=== PATIENT | male | born 1985 | race Caucasian/White ===

== ENCOUNTER 2021-09-06 12:33 | Observation (INO) | payer BC ==
[2021-09-06 13:42] LABS: Absolute Lymphocytes (CBC) 1.4 K/uL (0.7-4.9); Hematocrit 47.3 % (39.6-49.0); Lymphocytes % 8.8 % (15.3-44.8); MPV 6.5 fL (7.6-11.3); RBC Red Blood Cell Count 5.56 M/uL (4.33-5.43)
[2021-09-06] MEDS ORDERED: MORPHINE 4 MG/ML SYR ONE (13:56)
[2021-09-06] MEDS ORDERED: NA CHLORIDE 0.9% 1,000 ML ONE ×2 (13:56→21:25)
[2021-09-06] MEDS ORDERED: ONDANSETRON 4 MG/2 ML VIAL ONE (13:56)
[2021-09-06 13:57] LABS: Albumin 4.3 g/dL (3.4-5.0); Bilirubin Direct 0.1 mg/dL (0-0.2); Bilirubin Total 0.4 mg/dL (0.2-1.0); Potassium 3.5 mmol/L (3.5-5.1); Protein, Total 8.4 g/dL (6.4-8.2)
--- NOTE | 2021-09-06 14:36 | RAD REPORT ---
EXAM DESCRIPTION: CTAbdomen Pelvis W Contrast - 09/06/2021 2:17 pm CLINICAL HISTORY: Abdominal pain. ABD PAIN COMPARISON: No comparisons TECHNIQUE: Biphasic CT imaging of the abdomen and pelvis was performed with 100 ml non-ionic IV cont rast. All CT scans are performed using dose optimization technique as appropriate and may include automated exposure control or mA/KV adjustment according to patient size. FINDINGS: The lung bases are clear. The liver, spleen, pancreas, adrenal glands and kidneys are within normal limits. No bowel obstruction, free air, free fluid or abscess. The appendix is not identified as a discrete structure, however, no secondary findings of appendicitis are identified. No evidence of significan t lymphadenopathy. No suspicious bony findings. IMPRESSION: No acute intra-abdominal or pelvic finding.
[2021-09-06 15:24] LABS: Urine Blood Negative (Negative); Urine Glucose Negative (Negative); Urine Protein Negative (Negative); Urine pH 8.5 (5.0-7.0)
[2021-09-06] MEDS ORDERED: DICYCLOMINE HCL 10 MG CAP ONE (16:16)
[2021-09-06] MEDS ORDERED: PANTOPRAZOLE 40 MG INJ ONE ×2 (16:16→21:25)
[2021-09-06] MEDS ORDERED: NS 0.9% VIAL 10 ML ONE (16:17)
[2021-09-06 16:21] LABS: Protime INR 1.05
[2021-09-06 16:34] LABS: Magnesium 1.8 mg/dL (1.8-2.4); NT PRO-BNP 33 pg/mL (<125); Troponin (Emerg Dept Use Only) < 0.02 ng/mL (0.0-0.045)
[2021-09-06] MEDS ORDERED: LIDOCAINE VISCOUS 2% SOLN 15 ML UDC ONE (16:40)
[2021-09-06] MEDS ORDERED: MAGNES/ALUMIN/SIMET 30ML UCUP ONE (16:40)
--- NOTE | 2021-09-06 16:40 | RAD REPORT ---
EXAM DESCRIPTION: RAD - Chest Single View - 09/06/2021 4:22 pm CLINICAL HISTORY: CHEST PAIN Chest pain. COMPARISON: No comparisons FINDINGS: Portable technique limits examination quality. The lungs are grossly clear. The heart is normal in size. No displaced fractures. IMPRESSION: No acute intrathoracic process suspected.
--- NOTE | 2021-09-06 16:50 | RAD REPORT ---
EXAM DESCRIPTION: US - Abdomen Exam Limited - 09/06/2021 4:26 pm CLINICAL HISTORY: ABD PAIN COMPARISON: No comparisons FINDINGS: The gallbladder demonstrates no gallstones. No pericholecystic fluid or gallbladder wall t hickening. The common bile duct is normal measuring 2 mm. The liver demonstrates no findings of intrahepatic biliary dilatation. IMPRESSION: Unremarkable examination.
[2021-09-06 16:56] LABS: Urine Blood Negative (Negative); Urine Glucose Negative (Negative); Urine Protein Negative (Negative); Urine Specific Gravity 1.015 (1.005-1.030); Urine pH 8.5 (5.0-7.0)
[2021-09-06] MEDS ORDERED: MAGNES/ALUMIN/SIMET 30ML UCUP PO PRN (17:00)
[2021-09-06] MEDS ORDERED: LIDOCAINE VISCOUS 2% SOLN 15 ML UDC PO PRN (17:00)
--- NOTE | 2021-09-06 17:00 | ER ---
Nurse's Notes [facility] Name: Tom Gurrola Age: 36 yrs Sex: Male : 1985 Arrival Date: 09/06/2021 Time: 12:38 Bed 26 Private MD: Diagnosis: Upper abdominal pain, unspecified;Elevated white blood cell count Presentation: 09/06 13:08 Chief complaint: Patient states: he has had abdominal pain since this morning at around ap3 approx 0930. Patient reports nausea with no vomiting. Coronavirus screen: At this time, the client does not indicate any symptoms associated with coronavirus-19. Ebola Screen: No symptoms or risks identified at this time. Initial Sepsis Screen: Does the patient meet any 2 criteria? No. Patient's initial sepsis screen is negative. Does the patient have a suspected source of infection? No. Patient's initial sepsis screen is negative. Risk Assessment: Do you want to hurt yourself or someone else? Patient reports no desire to harm self or others. Onset of symptoms was September 06, 2021. 13:08 Method Of Arrival: Ambulatory ap3 13:08 Acuity: SHABBIR 3 ap3 Triage Assessment: 13:10 General: Appears uncomfortable, Behavior is cooperative, anxious. Pain: Complains of ap3 pain in abdomen Pain currently is 8 out of 10 on a pain scale. Pain began gradually, 4 hours ago. Also complains of nausea. Neuro: Level of Consciousness is awake, alert, obeys commands, Oriented to person, place, time, situation, Speech is normal. Cardiovascular: Patient's skin is warm and dry. Respiratory: Airway is patent Respiratory effort is even, unlabored, Respiratory pattern is regular, symmetrical. GI: Reports lower abdominal pain, upper abdominal pain, nausea. Historical: - Allergies: 13:10 No Known Allergies; ap3 - Home Meds: 13:10 None [Active]; ap3 - PMHx: 13:10 None; ap3 - PSHx: 13:10 None; ap3 - Immunization history:: Client reports having NOT received the Covid vaccine. - Social history:: Smoking status: Patient denies any tobacco usage or history of. Screenin:12 Abuse screen: Denies threats or abuse. Nutritional screening: No deficits noted. ap3 Tuberculosis screening: No symptoms or risk factors identified. 15:00 Fall Risk None identified. eo2 Assessment: 14:00 General: Appears uncomfortable, Behavior is cooperative. Neuro: Level of Consciousness eo2 is awake, alert, obeys commands, Oriented to person, place, time, situation, Reports dizziness, and "lightheadness" onset this morning. Cardiovascular: Denies chest pain, Capillary refill < 3 seconds Patient's skin is warm and dry. Respiratory: Breath sounds are clear bilaterally. Denies shortness of breath. GI: Bowel sounds present X 4 quads. Abdomen is tender to palpation "whole" abdomen per pt, reports abd pain onset this morning associated with nausea, denies V/D. : No signs and/or symptoms were reported regarding the genitourinary system. Derm: Skin is pale. 15:50 Reassessment: Pt noted with HR 155s on pulse ox, good waveform, Hellen DRUMMOND made aware, eo2 EKG obtained, read NSR, pt denied CP, HR noted to return to 80s by the time of EKG. 19:33 Reassessment: Pt reports improved symptoms, pain 2/10 worsened with movement, otherwise eo2 in NAD. Vital Signs: 13:08 BP 117 / 88 RA Sitting; Pulse 75; Resp 19; Temp 97.5; Pulse Ox 98% on R/A; Weight ap3 108.86 kg; Height 6 ft. (182.88 cm); Pain 8/10; 14:00 BP 109 / 62; Pulse 73; Resp 19; Pulse Ox 100% ; Pain 10/10; eo2 15:00 BP 119 / 80; Pulse 92; Resp 17; Temp 98.0; Pulse Ox 98% ; Pain 4/10; eo2 15:45 BP 111 / 72; Pulse 85; Resp 17; Pulse Ox 98% ; Pain 6/10; eo2 16:30 BP 109 / 70; Pulse 84; Resp 20; Pulse Ox 100% ; Pain 6/10; eo2 17:00 BP 115 / 76; Pulse 89; Resp 17; Pulse Ox 98% ; Pain 6/10; eo2 18:00 BP 105 / 70; Pulse 96; Resp 20; Pulse Ox 98% ; Pain 4/10; eo2 19:00 BP 129 / 72; Pulse 97; Resp 18; Pulse Ox 95% ; Pain 2/10; eo2 13:08 Body Mass Index 32.55 (108.86 kg, 182.88 cm) ap3 ED Course: 12:38 Patient arrived in ED. ds1 13:10 Triage completed. ap3 13:12 Arm band placed on left wrist. ap3 13:13 [facility] kb 13:13 Edwin Devries MD is Attending Physician. kb 13:30 Britta Manzano, RN is Primary Nurse. eo2 13:30 Inserted saline lock: 20 gauge in left wrist, using aseptic technique. ,using aseptic eo2 technique[address] by Neal Blood collected. 14:00 Patient has correct armband on for positive identification. Call light in reach. Side eo2 rails up X 1. Adult w/ patient. Pulse ox on. NIBP on. Door closed. Noise minimized. Warm blanket given. 14:00 No provider procedures requiring assistance completed. eo2 14:[address] eo2 14:17 CT Abd/Pelvis - IV Contrast Only In Process Unspecified. EDMS 16:09 Initial lab(s) drawn, sent to lab. tt3 16:22 XRAY Chest (1 view) In Process Unspecified. EDMS 16:26 US Abdomen Limited In Process Unspecified. EDMS 16:58 Asif Duran MD is Hospitalizing Provider. kb 19:30 COVID-19 SARS RT PCR (Document "Date of Onset" if Symptomatic) Sent. eo2 Administered Medications: 14:05 Drug: NS 0.9% 1000 ml Route: IV; Rate: 1000 ml; Site: left wrist; eo2 15:05 Follow up: Response: No adverse reaction; IV Status: Completed infusion; IV Intake: eo2 1000ml 14:05 Drug: Zofran (Ondansetron) 4 mg Route: IVP; Site: left wrist; eo2 15:05 Follow up: Response: No adverse reaction; Nausea is decreased eo2 14:05 Drug: morphine 4 mg Route: IVP; Site: left wrist; eo2 15:05 Follow up: Response: No adverse reaction; Pain is decreased eo2 16:56 Drug: Bentyl (dicyclomine) 20 mg Route: PO; eo2 17:45 Follow up: Response: No adverse reaction eo2 16:56 Drug: GI Cocktail without - (Maalox Suspension 30 ml, Lidocaine Liquid 2 % 15 eo2 ml) Route: PO; 17:45 Follow up: Response: No adverse reaction eo2 16:56 Drug: ProTONIX (pantoprazole) 40 mg Route: IVP; Site: left wrist; eo2 17:45 Follow up: Response: No adverse reaction eo2 Intake: 15:05 IV: 1000ml; Total: 1000ml. eo2 Outcome: 16:59 Decision to Hospitalize by Provider. glen 09/07 17:33 Patient left the ED. 5 Signatures: Dispatcher [employer] EDMS Hellen Ambrose, KIMMIE-C BRIM ROUNDER-Aurora Holloway ds1 Clary Lorenzo 5 Sharri Presley, RN RN donna3 Yoav Salcido tt3 Smooth Degroot Eunice, RN RN eo2 Corrections: (The following items were deleted from the chart) 09/06 14:09 13:05 morphine 4 mg IVP in left wrist eo2 eo2 16:45 16:09 First set of blood cultures drawn by oli flores tt3 19:31 17:00 BP 115 / 76; Pulse 89bpm; Resp 17bpm; Pulse Ox 98%; eo2 eo2 19:31 18:00 BP 105 / 70; Pulse 96bpm; Resp 20bpm; Pulse Ox 98%; eo2 eo2
--- NOTE | 2021-09-06 17:00 | EDPHYS ---
Physician Documentation [facility] Name: Tom Gurrola Age: 36 yrs Sex: Male : 1985 Arrival Date: 09/06/2021 Time: 12:38 Bed 26 Private MD: ED Physician Edwin Devries HPI: 09/06 15:56 This 36 yrs old Male presents to ER via Ambulatory with complaints of Abdominal Pain. kb 15:56 The patient presents with abdominal pain in the upper abdomen. Onset: The kb symptoms/episode began/occurred 4 hour(s) ago. The symptoms do not radiate. Associated signs and symptoms: none. The symptoms are described as constant. Modifying factors: The symptoms are alleviated by nothing, the symptoms are aggravated by nothing. Severity of pain: At its worst the pain was severe in the emergency department the pain is unchanged. The patient has not experienced similar symptoms in the past. The patient has not recently seen a physician. Pt reports upper abd pain that started 4 hours ago. Reports pain started as dull and then progressed to sharp. No tenderness upon exam, pt states "it just hurts." Denies cough, chest pain, n/v/d, fever. . Historical: - Allergies: 13:10 No Known Allergies; ap3 - Home Meds: 13:10 None [Active]; ap3 - PMHx: 13:10 None; ap3 - PSHx: 13:10 None; ap3 - Immunization history:: Client reports having NOT received the Covid vaccine. - Social history:: Smoking status: Patient denies any tobacco usage or history of. ROS: 15:55 Constitutional: Negative for fever, chills, and weight loss. kb 15:55 Abdomen/GI: Positive for abdominal pain, Negative for nausea, vomiting, and diarrhea. 15:55 All other systems are negative. Exam: 15:55 Head/Face: Normocephalic, atraumatic. ENT: Moist Mucous membranes Cardiovascular: kb Regular rate and rhythm with a normal S1 and S2. No gallops, murmurs, or rubs. No pulse deficits. Respiratory: Respirations even and unlabored. No increased work of breathing. Talking in full sentences Skin: Warm, dry with normal turgor. Normal color. MS/ Extremity: Pulses equal, no cyanosis. Neurovascular intact. Full, normal range of motion. Neuro: Awake and alert, GCS 15, oriented to person, place, time, and situation. Moves all extremities. Normal gait. Psych: Awake, alert, with orientation to person, place and time. Behavior, mood, and affect are within normal limits. 15:55 Constitutional: The patient appears alert, awake, in obvious distress, moderately distressed, in obvious pain. 15:55 Abdomen/GI: Inspection: abdomen appears normal, Bowel sounds: normal, in all quadrants, Palpation: abdomen is soft and non-tender, in all quadrants. Vital Signs: 13:08 BP 117 / 88 RA Sitting; Pulse 75; Resp 19; Temp 97.5; Pulse Ox 98% on R/A; Weight ap3 108.86 kg; Height 6 ft. (182.88 cm); Pain 8/10; 14:00 BP 109 / 62; Pulse 73; Resp 19; Pulse Ox 100% ; Pain 10/10; eo2 15:00 BP 119 / 80; Pulse 92; Resp 17; Temp 98.0; Pulse Ox 98% ; Pain 4/10; eo2 15:45 BP 111 / 72; Pulse 85; Resp 17; Pulse Ox 98% ; Pain 6/10; eo2 16:30 BP 109 / 70; Pulse 84; Resp 20; Pulse Ox 100% ; Pain 6/10; eo2 17:00 BP 115 / 76; Pulse 89; Resp 17; Pulse Ox 98% ; Pain 6/10; eo2 18:00 BP 105 / 70; Pulse 96; Resp 20; Pulse Ox 98% ; Pain 4/10; eo2 19:00 BP 129 / 72; Pulse 97; Resp 18; Pulse Ox 95% ; Pain 2/10; eo2 13:08 Body Mass Index 32.55 (108.86 kg, 182.88 cm) ap3 MDM: 13:13 Patient medically screened. kb 15:54 Data reviewed: vital signs, nurses notes. Data interpreted: Pulse oximetry: on room air kb is 98 %. Interpretation: normal. ED course: Nurse reports pt has had 2 episodes of tachycardia into the 150s. Unable to capture on EKG. Discussed pt condition and findings with Dr Devries. Recommends admission for abd pain. 16:50 Counseling: I had a detailed discussion with the patient and/or guardian regarding: the kb historical points, exam findings, and any diagnostic results supporting the discharge/admit diagnosis, lab results, radiology results, the need for further work-up and treatment in the hospital. Physician consultation: Asif Duran MD was contacted at 16:50, regarding admission, patient's condition. 09/06 13:13 Order name: Basic Metabolic Panel; Complete Time: 14:01 kb 09/06 13:13 Order name: CBC with Diff; Complete Time: 13:56 kb 09/06 13:13 Order name: Hepatic Function; Complete Time: 14:01 kb 09/06 13:13 Order name: Lipase; Complete Time: 14:01 kb 09/06 15:23 Order name: Urine Dipstick-Ancillary; Complete Time: 15:25 EDMS 09/06 15:53 Order name: Magnesium; Complete Time: 16:36 kb 09/06 15:53 Order name: NT PRO-BNP; Complete Time: 16:36 kb 09/06 15:53 Order name: PT-INR; Complete Time: 16:22 kb 09/06 15:53 Order name: Troponin (emerg Dept Use Only); Complete Time: 16:36 kb 09/06 16:37 Order name: UDS; Complete Time: 17:34 kb 09/06 16:39 Order name: COVID-19 SARS RT PCR (Document "Date of Onset" if Symptomatic) kb 09/06 16:56 Order name: Urine Dipstick-Ancillary; Complete Time: 16:58 EDMS 09/06 16:58 Order name: CRP; Complete Time: 18:16 kb 09/06 16:58 Order name: ESR; Complete Time: 18:27 kb 09/06 13:31 Order name: CT Abd/Pelvis - IV Contrast Only; Complete Time: 14:41 kb 09/06 15:44 Order name: US Abdomen Limited; Complete Time: 16:52 kb 09/06 15:53 Order name: XRAY Chest (1 view); Complete Time: 16:50 kb 09/06 16:58 Order name: Procal; Complete Time: 18:51 kb 09/06 22:11 Order name: SARS-COV-2 RT PCR; Complete Time: 13:32 EDMS 09/07 00:42 Order name: Urinalysis; Complete Time: 13:32 EDMS 09/07 04:24 Order name: CBC with Automated Diff; Complete Time: 13:32 EDMS 09/07 04:41 Order name: Comprehensive Metabolic Panel; Complete Time: 13:32 EDMS 09/07 04:41 Order name: Magnesium; Complete Time: 13:32 EDMS 09/07 07:40 Order name: Glucose, Ancillary Testing; Complete Time: 13:32 EDMS 09/06 13:13 Order name: IV Saline Lock; Complete Time: 13:43 kb 09/06 13:13 Order name: Labs collected and sent; Complete Time: 13:43 kb 09/06 15:00 Order name: Urine Dipstick-Ancillary (obtain specimen); Complete Time: 16:56 kb 09/06 15:31 Order name: EKG; Complete Time: 15:31 kb 09/06 15:31 Order name: EKG - Nurse/Tech; Complete Time: 15:58 kb 09/06 15:53 Order name: Cardiac monitoring; Complete Time: 15:58 kb 09/06 15:53 Order name: O2 Per Protocol; Complete Time: 15:58 kb 09/06 15:53 Order name: O2 Sat Monitoring; Complete Time: 15:58 kb Administered Medications: 14:05 Drug: NS 0.9% 1000 ml Route: IV; Rate: 1000 ml; Site: left wrist; eo2 15:05 Follow up: Response: No adverse reaction; IV Status: Completed infusion; IV Intake: eo2 1000ml 14:05 Drug: Zofran (Ondansetron) 4 mg Route: IVP; Site: left wrist; eo2 15:05 Follow up: Response: No adverse reaction; Nausea is decreased eo2 14:05 Drug: morphine 4 mg Route: IVP; Site: left wrist; eo2 15:05 Follow up: Response: No adverse reaction; Pain is decreased eo2 16:56 Drug: Bentyl (dicyclomine) 20 mg Route: PO; eo2 17:45 Follow up: Response: No adverse reaction eo2 16:56 Drug: GI Cocktail without - (Maalox Suspension 30 ml, Lidocaine Liquid 2 % 15 eo2 ml) Route: PO; 17:45 Follow up: Response: No adverse reaction eo2 16:56 Drug: ProTONIX (pantoprazole) 40 mg Route: IVP; Site: left wrist; eo2 17:45 Follow up: Response: No adverse reaction eo2 Disposition: 09/08 07:22 Co-signature as Attending Physician, Edwin Devries MD I agree with the assessment and adia plan of care. Disposition Summary: 09/06/21 16:59 Hospitalization Ordered Hospitalization Status: Observation kb Provider: Asif Duran Condition: Stable kb Problem: new kb Symptoms: are unchanged kb Bed/Room Type: Standard kb Location: Telemetry/MedSurg (observation)(09/07/21 15:46) ja1 Room Assignment: 213(09/07/21 15:46) ja1 Diagnosis - Upper abdominal pain, unspecified kb - Elevated white blood cell count kb Forms: - Medication Reconciliation Form kb - SBAR form kb Signatures: Dispatcher [employer] EDMS Hellen Ambrose, PUBLIC HEALTH ENGINEER-C PUBLIC HEALTH ENGINEER-Ckb Edwin Devries MD MD cha Rittger, Kevin, MD MD kdr Garcia, Cindy, RN RN cg Seb Alexandre RN RN ja1 Sharri Presley RN RN ap3 Britta Manzano RN RN eo2 Corrections: (The following items were deleted from the chart) 09/07 00:40 09/06 16:59 Telemetry/MedSurg (observation) kb 09/07 00:40 09/06 16:59 kb 09/07 15:46 00:40 RUST ER HOLD cg ja1 15:46 00:40 ERHOLD- cg ja1
[2021-09-06 17:26] LABS: Barbiturates NEGATIVE (NEGATIVE); Benzodiazepines NEGATIVE (NEGATIVE); Cocaine NEGATIVE (NEGATIVE); METHAMPHETAM NEGATIVE (NEGATIVE); Methadone NEGATIVE (NEGATIVE); Opiates NEGATIVE (NEGATIVE); Phencyclidine NEGATIVE (NEGATIVE); THC Cannibis NEGATIVE (NEGATIVE)
--- NOTE | 2021-09-06 17:53 | P.HP ---
Certification for Inpatient Patient admitted to: Observation With expected LOS: <2 Midnights Practitioner: I am a practitioner with admitting privileges, knowledge of patient current condition, hospital course, and medical plan of care. Services: Services provided to patient in accordance with Admission requirements found in Title 42 Section 412.3 of the Code of Federal Regulations Patient History Date of Service: 09/06/21 Reason for admission: Abdominal pain History of Present Illness: 36-year-old male, no PMH Presents to ED due to progressively worsening upper abdominal pain. Pain is described as a constant burning/sharp pain. Pain began shortly after drinking his morning cup of coffee, was a 2/10 at that time. He proceeded on with his day driving to pick something up and neighboring town. Pain progressively worsened to the point where he was unable to do much and came to the ER. Denies fever, cough, nausea/vomiting, diarrhea, changes in urinary or bowel habits. He does not recall anything that seems to aggravate or alleviate this sensation with the exception of morphine given to him in the ER. He otherwise denies any recent illness prior to today. He typically follows a keto diet, was very strict up until , last month has been slightly lax about it, and did not adhere to it for . He denies any prior episodes of similar pain. He has not tried anything for it. He does report decreased p.o. intake today secondary to not feeling well from the pain. Denies pain worsening secondary to drinking water. In the ED, RUQ ultrasound, CT abdomen/pelvis with IV contrast, CXR were all negative. Noted to have leukocytosis and an elevated creatinine. - Past Medical/Surgical History Past Medical History: Patient denies medical history Past Surgical History: Patient denies surgical history - Family History Father -: Other (see notes) (Kidney stones) Mother -: GI disease (Diverticulitis) - Social History Smoking Status: Current some day smoker Alcohol use: No Caffeine use: Yes Place of Residence: Home Review of Systems 10-point ROS is otherwise unremarkable Physical Examination - Physical Exam General: Alert, Other (Appears uncomfortable) HEENT: PERRLA, Sclerae nonicteric Neck: No LAD Respiratory: Clear to auscultation bilaterally, Normal air movement Cardiovascular: No edema, Regular rate/rhythm, No murmurs Gastrointestinal: Soft and benign, Non-distended, Tenderness (Very mild tenderness to palpation across upper abdomen) Musculoskeletal: No erythema, No tenderness Integumentary: No rashes, No significant lesion Neurological: Normal speech, Normal affect - Studies Laboratory Data (last 24 hrs) 09/06/21 16:06: PT 12.1, INR 1.05 09/06/21 16:06: Magnesium 1.8 09/06/21 13:31: WBC 16.20 H, Hgb 16.0, Hct 47.3, Plt Count 288 09/06/21 13:31: Sodium 138, Potassium 3.5, BUN 13, Creatinine 1.32 H, Glucose 134 H, Total Bilirubin 0.4, AST 19, ALT 41, Alkaline Phosphatase 89, Lipase 67 L Assessment and Plan - Advance Directives Does patient have a Living Will: No Does patient have a Durable POA for Healthcare: No Physician Review Additional Text: Problem list Intractable moderate abdominal pain MAGDALENE Leukocytosis Unclear etiology of patient's pain CT abdomen/pelvis, RUQ ultrasound negative for any acute pathology/acute infectious pathology Patient afebrile Possible viral gastritis/gastroenteritis We will hold off on antibiotics for now IV fluids, Protonix, and clear liquid diet UDS negative, UA negative, no findings concerning for kidney stones Morphine as needed for pain control This may possibly be due to breaking his keto diet MAGDALENE secondary to prerenal/dehydration, rehydrate Leukocytosis likely reactive, possibly from viral infection Code: full Dispo: anticipate dc home in next 24-48hrs Time Spent Managing Pts Care (In Minutes): 60
[2021-09-06] MEDS ORDERED: ONDANSETRON 4 MG/2 ML VIAL IV PRN (20:14)
[2021-09-06] MEDS: NA CHLORIDE 0.9% 1,000 ML IV SCH (20:14)
[2021-09-06] MEDS ORDERED: PANTOPRAZOLE 40 MG INJ IVP SCH (21:00)
[2021-09-06 21:53] VITALS: BMI 31.6
[2021-09-06] MEDS ORDERED: MORPHINE 2 MG/ML SYR ONE (23:32)
[2021-09-06] MEDS: MORPHINE 2 MG/ML SYR IV PRN (23:34)
[2021-09-07 00:30] LABS: Urine Appearance CLEAR (Clear); Urine Bilirubin NEGATIVE (Negative); Urine Blood NEGATIVE (Negative); Urine Color DK YELLOW (Yellow); Urine Glucose NEGATIVE (Negative); Urine Protein TRACE (Negative); Urine Specific Gravity >=1.030 (1.005-1.030); Urine pH 6.5 (5.0-7.0)
[2021-09-07 00:42] LABS: Urine Microscopic Reflex NO UMIC
[2021-09-07] MEDS ORDERED: MORPHINE 2 MG/ML SYR ONE (03:40)
[2021-09-07] MEDS: MORPHINE 2 MG/ML SYR IV PRN (03:42)
[2021-09-07] MEDS: NA CHLORIDE 0.9% 1,000 ML IV SCH ×3 (04:14→20:14)
[2021-09-07 04:21] LABS: Absolute Lymphocytes (CBC) 1.9 K/uL (0.7-4.9); Hematocrit 41.3 % (39.6-49.0); Lymphocytes % 15.6 % (15.3-44.8); MPV 6.7 fL (7.6-11.3); RBC Red Blood Cell Count 4.85 M/uL (4.33-5.43)
[2021-09-07 04:40] LABS: Albumin 3.4 g/dL (3.4-5.0); Bilirubin Total 0.6 mg/dL (0.2-1.0); Magnesium 2.3 mg/dL (1.8-2.4); Potassium 3.7 mmol/L (3.5-5.1); Protein, Total 6.7 g/dL (6.4-8.2)
[2021-09-07] MEDS ORDERED: POTASSIUM 25 MEQ EFFERV TAB PO ONE (05:12)
[2021-09-07] MEDS ORDERED: POTASSIUM 25 MEQ EFFERV TAB ONE (05:26)
[2021-09-07] MEDS ORDERED: NA CHLORIDE 0.9% 1,000 ML ONE ×2 (06:19→13:56)
[2021-09-07] MEDS ORDERED: INFLUENZA VACCINE (for 6+ mo) 0.5 ML DOSE IMVAC ONE (08:00)
[2021-09-07] MEDS ORDERED: NS 0.9% VIAL 10 ML ONE (08:51)
[2021-09-07] MEDS ORDERED: PANTOPRAZOLE 40 MG INJ ONE (08:51)
[2021-09-07] MEDS: PANTOPRAZOLE 40 MG INJ IVP SCH (08:58)
[2021-09-07] MEDS: SODIUM CHLORIDE 0.9% 10ML INJ IV PRN (08:59)
--- NOTE | 2021-09-07 18:14 | P.PN ---
Subjective Date of Service: 09/07/21 Chief Complaint: Abdominal pain Patient reports improvement in abdominal pain but states that the pain has migrated to the right lower quadrant. No nausea or vomiting. No fever. Physical Examination - Vital Signs Temperature: 97.5 F Blood Pressure: 113/72 Pulse: 96 Respirations: 18 Pulse Ox (%): 100 - Physical Exam General: Alert, In no apparent distress, Oriented x3 HEENT: Atraumatic, Mucous membr. moist/pink Neck: Supple, JVD not distended Respiratory: Clear to auscultation bilaterally, Normal air movement Cardiovascular: No edema, Regular rate/rhythm, Normal S1 S2, No murmurs Gastrointestinal: Normal bowel sounds, No guarding, Tenderness (Right lower quadrant), Rebound Musculoskeletal: No swelling, No tenderness Integumentary: No rashes, No erythema Neurological: Normal speech, Normal strength at 5/5 x4 extr Assessment And Plan Physician Review Additional Text: Problem list Intractable moderate abdominal pain MAGDALENE Leukocytosis CT abdomen/pelvis, RUQ ultrasound negative for any acute pathology/acute infectious pathology but need to rule out appendicitis based on physical findings on examination. Possible viral gastritis/gastroenteritis is also a possibility. We will start IV antibiotics. General surgery-Dr. Lorenzo consulted to evaluate. Leukocytosis improved from 16 to 12 Continue IV fluids, Protonix, and clear liquid diet. Keep n.p.o. post midnight. UDS negative, UA negative, no findings concerning for kidney stones Morphine as needed for pain control MAGDALENE is prerenal secondary to dehydration. MAGDALENE is resolved. Monitor CBC to follow leukocytosis.
--- NOTE | 2021-09-07 20:46 | CON ---
Date of Consultation: 09/07/2021 History Of Present Illness: This is the case of a 36-year-old patient who apparently came last night with abdominal pain, diagnosed with a possible gastroenteritis. Tonight, he is not feeling better, although the white count came down and a CAT scan came negative for any inflammation. They want a saravia rgical consult for observation and see if the diagnostic laparoscopy is an option. The patient state d that he has been on a diet for a long time, but the last few weeks he has not been on that diet. H e has been eating a little more greasy, he took a break from his diet. He was on a keto diet, but no w eating a little bit more the usual and he does not know what caused this. His abdominal pain is ma inly in epigastric right upper quadrant area, although the ultrasound done last night did not show an y gallstones or any inflammation of the gallbladder. Today since the pain was not getting better, samuel khan called us. He has been not eating, in hydration. The pain is not worse, but is not better. He d enies any dysuria, hematuria, hematochezia, melena. He denies any recent traveling out of the [facility]. He denies any family members sick at home. Past Medical History: None. Surgeries: None. Allergies: NONE. Social History: He does not smoke. He does not drink alcohol. Family History: Noncontributory. Physical Examination: General: The patient is awake, alert. HEENT: Pupils are equal and reactive. Anicteric. Neck: Supple. Chest: Clear. Abdomen: Soft and depressible. Mild epigastric, right upper quadrant area tenderness. No guarding or rebound, but he stated the pain is mainly in the right side. He is not pointing on the right lowe r quadrant or left lower quadrant at this moment. Rectal: Deferred. Extremities: Good capillary refill. Laboratory Data: WBC count came from 16 to 12 right now. CAT scan reviewed, the report from the rad iologist and they could not identify the appendix. Assessment And Plan: This is a 36-year-old patient with abdominal pain, unknown etiology. Ultrasoun d comes back negative for gallstones and the CAT scan did not show appendicitis. Although he does no t have any acute abdomen at this moment, the pain is not getting better and we are starting to bring some other diagnosis in the differential diagnosis. I offered him as an option a diagnostic laparosc opy understanding the CAT scan did not show any acute appendicitis, but I explained to him in some oc casions sometimes CAT scan and blood work are not definitive. He is trying to overnight see how he d oes. If he improves by tomorrow morning, then he is not going to consent for surgery. If he is the same or worse, then he might consent to the surgery. In the meantime, I explained to him, I will try to repeat the CAT scan once again to compare that with the one done 24 hours ago to see if an append icitis may be developed and/or any other enteritis, either a viral or bacterial. In the meantime, I explained to him what diagnostic lap and possible appendectomy is all about with benefits, alternativ es, and risks including, but not limited to infection, bleeding, damage to adjacent structures as com plication, negative exploration, negative appendix, NE, even . He also understands that if this may not relieve the symptoms, he might need more than one surgical intervention. CAYDEN/OSMANI Voice ID: [id number] Report ID: [id number]
[2021-09-07] MEDS: PIPER TAZO 3.375 GM in NA CHLORIDE 0.9% 100 ML IV SCH (23:23)
[2021-09-08 04:09] LABS: Absolute Lymphocytes (CBC) 2.2 K/uL (0.7-4.9); Hematocrit 39.5 % (39.6-49.0); MPV 6.6 fL (7.6-11.3); RBC Red Blood Cell Count 4.58 M/uL (4.33-5.43)
[2021-09-08] MEDS: NA CHLORIDE 0.9% 1,000 ML IV SCH ×2 (04:14→12:14)
[2021-09-08 04:23] LABS: Potassium 4.2 mmol/L (3.5-5.1)
--- NOTE | 2021-09-08 07:30 | RAD REPORT ---
EXAM DESCRIPTION: CT - Abdomen Pelvis W Contrast - 09/08/2021 6:44 am CLINICAL HISTORY: r/o appendicitis COMPARISON: Abdomen Pelvis W Contrast dated 09/06/2021 TECHNIQUE: Biphasic, helical CT imaging of the abdomen and pelvis was performed following 100 ml non -ionic IV contrast. Oral contrast was given. All CT scans are performed using dose optimization technique as appropriate and may include automated exposure control or mA/KV adjustment according to patient size. FINDINGS: No suspicious findings in the lung bases. Minimal areas of nodularity are similar to Decem amy 27 imaging. These are not regarded as significant in a patient this age. No cardiomegaly or peric ardial effusion. The liver, spleen, and pancreas show no suspicious findings. Liver shows a borderline to mildly fatty infiltrated pattern. No gallbladder or biliary tree abnormality. Symmetric renal function is seen with no hydronephrosis or suspicious renal mass. No pyelonephritis o r acute parenchymal process. No bladder abnormalities. No adrenal abnormalities. No gastric dilatation or gastric wall thickening. No dilated small bowel loops. No Meckel diverticulu m seen. Small bowel to the ileocecal valve level well opacified and without focal abnormality. The mi d and distal portions of the appendix are dilated up to 13 mm. No appendicolith present. [place] are ed ematous and there is trace amount of stranding in the periappendiceal fat. A few reactive lymph nodes are present in the right lower quadrant. The appendix is not a classic right lower quadrant location . No free air or pneumatosis. No intraperitoneal free fluid. No hernia, mass or bulky lymphadenopath y. No suspicious bony findings. IMPRESSION: Acute appendicitis. Appendix is in classic right lower quadrant location. No abscess, free air or other complicating factor.
[2021-09-08] MEDS: PIPER TAZO 3.375 GM in NA CHLORIDE 0.9% 100 ML IV SCH (08:42)
[2021-09-08] MEDS: PANTOPRAZOLE 40 MG INJ IVP SCH (08:42)
[2021-09-08] MEDS: SODIUM CHLORIDE 0.9% 10ML INJ IV PRN (08:43)
[2021-09-08] MEDS ORDERED: Ringers Lactate 1,000 ML IV ONE (09:46)
[2021-09-08] MEDS: BUPIVACAINE 0.5% PF 10 ML VIAL ONE ×2 (10:08→10:55)
[2021-09-08] MEDS ORDERED: MIDAZOLAM HCL 2 MG/2 ML INJ ONE (10:08)
[2021-09-08] MEDS ORDERED: FENTANYL CITR 100 MCG/2 ML ONE (10:08)
[2021-09-08] MEDS ORDERED: LIDOCAINE 2% MPF 5 ML VIAL ONE (10:08)
[2021-09-08] MEDS ORDERED: ONDANSETRON 4 MG/2 ML VIAL ONE (10:09)
[2021-09-08] MEDS ORDERED: dexAMETHasone 10 MG/ML VIAL ONE (10:09)
[2021-09-08] MEDS ORDERED: propofoL 200 MG/20 ML VIAL IV ONE (10:09)
[2021-09-08] MEDS ORDERED: GLYCOPYRROLATE 0.2 MG/ML SYR ONE ×2 (10:09→11:08)
[2021-09-08] MEDS ORDERED: KETOROLAC 30 MG/ML INJ ONE (10:09)
[2021-09-08] MEDS ORDERED: ROCURONIUM 50 MG/5 ML VIAL IV ONE (10:12)
[2021-09-08] MEDS ORDERED: NEOSTIGMINE 1 MG/ML -5 ML ONE (11:13)
[2021-09-08] MEDS ORDERED: HYDROCODONE/APAP 5/325 MG TAB PO PRN (11:22)
--- NOTE | 2021-09-08 11:27 | P.BOP ---
Preoperative diagnosis: acute abd pain, Acute appendicitis Postoperative diagnosis: SAME Primary procedure: Laparoscopic appendectomy Cash Register Mechanic: Etelvina Medeiros (Janine) Estimated blood loss: <10cc Specimen: alphonso Findings: as above Anesthesia: General Complications: None Transferred to: Recovery Room Condition: Good
[2021-09-08] MEDS: HYDROMORPHONE HCL 1 MG/ML INJ ONE ×2 (11:35→11:43)
[2021-09-08 11:39] VITALS: O2SAT 100
[2021-09-08 12:06] VITALS: BP 134/76; TEMP 98.5
--- NOTE | 2021-09-08 12:26 | OP ---
Date of Procedure: 09/08/2021 Surgeon: Anup Lorenzo MD Heavy Equipment Rental Associate: MARLYN Dutton. Preoperative Diagnoses: Acute abdominal pain, acute appendicitis. Postoperative Diagnosis: Acute abdominal pain, acute appendicitis. Procedure: Laparoscopic appendectomy. Estimated Blood Loss: Less than 10 mL. Specimen: Appendix. Finding: Acute appendicitis. Anesthesia: General plus local. Indications: This is the case of a 36-year-old patient, who comes to us with above diagnosis. Fully explained the benefits, alternatives, and risks of laparoscopic possible open appendectomy, which in clude, but not limited to infection, bleeding, damage to adjacent structures, anesthesia complication s, [place] and even . He also understands this may not relieve any symptoms. He might need more irina n one surgical intervention. He understood, signed a consent. Procedure In Detail: The patient was brought to the operating room, placed in supine position. Anes thesia was done without complication. Abdominal area was prepped and draped in the usual sterile fas hion. Marcaine 0.5% was injected for local anesthetic followed by sharp incision of the skin in the infraumbilical region. Incision was carried down to fascia, which was opened under direct vision. P eritoneum was encountered, opened under direct vision. Vicryl #1 placed inside the fascia. Barrie t rocar was carefully introduced. Pneumoperitoneum was obtained. I placed 2 more trocars, 5 mm each o ne of them, 1 in the left lower quadrant and another 1 in suprapubic area under direct visualization. This allowed me to visualize the area of the appendix, looks inflamed the tip of the appendix. The base of the appendix seems to be spared from the inflammation, so we created a window in the base of the appendix, transected that with an Endo MAYANK 45 mm medium. The mesoappendix has some adhesions to it, so we have to use the help of LigaSure since we just could not do it with a MAYANK. Ligature was d one to take care of the mesoappendix. Appendix removed from abdominal cavity using EndoCatch through the umbilical incision. The area was inspected once again. No bowel leak. No bleeding after profu se irrigation. At that moment, I proceeded to remove the trocars under direct vision. Deflated pneu moperitoneum. Closed the fascia with #1 Vicryl. Irrigated subcutaneous tissue, closed that with 3-0 chromic and the skin with lopez. Sponge count and instrument counts correct. The patient tolerat ed the procedure well. The patient was sent to recovery in stable condition. CADYEN/OSMANI Voice ID: [id number] Report ID: [id number]
--- NOTE | 2021-09-08 16:10 | P.DS ---
Admission Date: 09/06/21 Discharge Date: 09/08/21 Disposition: ROUTINE DISCHARGE Reason for Admission: Abdominal pain Consultations: General surgery-Dr. Lorenzo. - Problems (1) Acute appendicitis Status: Acute Brief History of Present Illness: 36-year-old male with no PMH presented to ED due to progressively worsening upper abdominal pain which began shortly after drinking his morning cup of coffee. He denied fever, cough, nausea/vomiting, diarrhea, changes in urinary or bowel habits. He typically follows a keto diet, but was noncompliant beginning Thanks through [place]. In the ED, RUQ ultrasound, CT abdomen/pelvis with IV contrast, CXR were all unremarkable. Noted to have leukocytosis and an elevated creatinine. Patient hospitalized for further management. Hospital Course: Patient admitted to the medical floor and started on supportive measures. His abdominal pain was initially diffuse but pain migrated to the right lower qu adrant and there was suspicion for acute appendicitis. General surgery Dr. Lorenzo was consulted, CT abdomen/pelvis repeated which confirmed acute appendicitis. Dr. Lorenzo performed laparoscopic appendectomy. No rupture or leakage per OR report. Patient briefly treated with IV Zosyn. He is deemed stable for discharge per Dr. Lorenzo. Patient is discharged with oral Augmentin to follow-up with Dr. Lorenzo as an outpatient. Vital Signs/Physical Exam: Temp Pulse Resp BP Pulse Ox 98.5 F 78 18 134/76 98 09/08/21 12:04 09/08/21 12:04 09/08/21 12:04 09/08/21 12:04 09/08/21 08:00 General: Alert, In no apparent distress, Oriented x3 HEENT: Mucous membr. moist/pink Neck: JVD not distended Respiratory: Clear to auscultation bilaterally, Normal air movement Cardiovascular: Regular rate/rhythm, Normal S1 S2 Gastrointestinal: Non-distended Musculoskeletal: No swelling Integumentary: No rashes Neurological: Normal strength at 5/5 x4 extr Laboratory Data at Discharge: WBC 7.50 K/uL (4.3-10.9) D 09/08/21 03:58 Hgb 13.4 g/dL (13.6-17.9) L 09/08/21 03:58 Hct 39.5 % (39.6-49.0) L 09/08/21 03:58 Plt Count 212 K/uL (152-406) 09/08/21 03:58 PT 12.1 SECONDS (9.5-12.5) 09/06/21 16:06 INR 1.05 09/06/21 16:06 Sodium 138 mmol/L (136-145) 09/08/21 03:58 Potassium 4.2 mmol/L (3.5-5.1) 09/08/21 03:58 BUN 11 mg/dL (7-18) 09/08/21 03:58 Creatinine 1.16 mg/dL (0.55-1.3) 09/08/21 03:58 Glucose 90 mg/dL (74-106) 09/08/21 03:58 Magnesium 2.3 mg/dL (1.8-2.4) D 09/07/21 04:07 Total Bilirubin 0.6 mg/dL (0.2-1.0) 09/07/21 04:07 AST 12 U/L (15-37) L 09/07/21 04:07 ALT 30 U/L (12-78) 09/07/21 04:07 Alkaline Phosphatase 68 U/L (45-117) 09/07/21 04:07 Lipase 67 U/L (73-393) L 09/06/21 13:31 Home Medications: Amox/Clavulanate [Augmentin 875-125 Tab] 875 mg PO BID 6 Days #12 tab 09/08/21 Codeine/APAP [Tylenol W/Codeine #3 tab] 1 tab PO Q4H PRN #30 tab 09/08/21 New Medications: Amox/Clavulanate [Augmentin 875-125 Tab] 875 mg PO BID 6 Days #12 tab Codeine/APAP [Tylenol W/Codeine #3 tab] 1 tab PO Q4H PRN #30 tab PRN Reason: Pain Scale 5-7 (Moderate) Followup: Anup Lorenzo MD [ACTIVE - CAN ADMIT] - NONE,NONE [Primary Care Provider] -
== END 2021-09-08 15:12 | disposition home or self-care (01) ==
LOC: ER 12:33 → ERHOLD 18:14 → 2ND 09-07 17:51
PROVIDERS: ADMIT Hospitalist; ATTEND Internal Medicine
PROC: 0DTJ4ZZ Resection of Appendix, Percutaneous Endoscopic Approach (ICD-10-PCS; principal; 2021-09-06)
DX: K35.80 Unspecified acute appendicitis (principal); E86.0 Dehydration; N17.9 Acute kidney failure, unspecified; F17.210 Nicotine dependence, cigarettes, uncomplicated; Z20.822 Contact with and (suspected) exposure to COVID-19; Z83.79 Family history of other diseases of the digestive system
CPT/HCPCS: 96361; 93005; 85025 ×3; 80048 ×2; 36415 ×2; 83735 ×2; 85610; 82947; 80076; 88304; 85652; 81003 ×3; 84484; 83690; 80053; 84145; 83880; 80307; 86140; 74177 ×2; 71045; 76705; 94010; 94760 ×4; 96375; 96374; 99284; 44970; U0003; Q9967 ×2; J2704; J2543 ×2; C9113 ×2; J2250; J3010; J1100; J2270 ×2; J1170; J2710; G0378 ×5; J7120; J7030 ×5; J2405 ×2